=== PATIENT | male | born 1955 | race Caucasian/White ===

== ENCOUNTER 2016-11-03 13:20 | Observation (INO) | payer BC ==
[~2016-11-03] VITALS: Ht 182.9 cm; Wt 95.0 kg
[2016-11-03 14:46] LABS: HEMATOCRIT 40.5 % (38.0-50.0); MCH 30.8 PG (29.0-34.0); MCHC 36.3 G/DL (30.0-36.0); MCV 84.9 FL (86-99); PLATELET COUNT 130 K/uL (156-360); RBC DIS.WIDTH-CV 12.4 % (11.8-14.6); RBC DIS.WIDTH-SD 38.1 % (39-53); RED BLOOD COUNT 4.77 M/uL (4.00-5.50); WHITE BLOOD COUNT 6.1 K/uL (4.1-10.2)
[2016-11-03 14:55] LABS: CHLORIDE 109 mEq/L (99-109); POTASSIUM 3.6 mEq/L (3.7-5.4); SODIUM 141 mEq/L (136-147)
[2016-11-03 14:56] LABS: GLUCOSE 91 mg/dL (70-99)
[2016-11-03 14:58] LABS: ANION GAP 8 MEQ/L (2-14)
[2016-11-03 15:00] LABS: GFR ESTIMATE (CALCULATED) > 59 mL/min/
[2016-11-03 15:01] LABS: UREA NITROGEN (BUN) 16 mg/dL (9-23)
[2016-11-03 15:08] LABS: TROP-I INTERPRETATION NEGATIVE; TROPONIN-I < 0.01 ng/mL (0.0-0.30)
[2016-11-03] MEDS ORDERED: WELLBUTRIN SR150 MG PO (16:09)
[2016-11-03] MEDS ORDERED: PREVACID 24HR15 MG PO (16:09)
[2016-11-03] MEDS ORDERED: CIALIS5 MG PO (16:09)
[2016-11-03] MEDS ORDERED: ATORVASTATIN CA20 MG PO (16:09)
[2016-11-03] MEDS ORDERED: ONE-A-DAY ESSE1 EAC1 PO (16:09)
[2016-11-03] MEDS ORDERED: ASPIR 8181 M1 PO (16:09)
[2016-11-03] MEDS ORDERED: GLUCOSAMINE &1 EACH PO (16:10)
[2016-11-03] MEDS ORDERED: ADVIL,NUPRIN,M200 MG PO (16:10)
[2016-11-03] MEDS ORDERED: CALCIUM 500 MG1 EACH PO (16:10)
[2016-11-03] MEDS ORDERED: ASCORBIC ACID500 M3 PO (16:10)
[2016-11-03] MEDS ORDERED: EXCEDRIN EXTRA1 EACH PO (16:11)
[2016-11-03 19:11] LABS: HDL CHOLESTEROL 49 MG/DL (Desirable>=40); LDL CHOLESTEROL 73 mg/dL (Desirable<100); NON-HDL CHOLESTEROL 85 mg/dL (Desirable<160); TOTAL CHOLESTEROL 134 mg/dL (Desirable<200); TRIGLYCERIDES 59 MG/DL (Normal: <150)
[2016-11-03 19:23] LABS: Estimated Average Glucose 82 mg/dL (70-123); HEMOGLOBIN A1c (GLYCOHEMOGLOB) 4.5 % HGB (Below 5.7)
[2016-11-03 21:00] VITALS: BP 159/85
[2016-11-03 23:58] VITALS: BP 160/77
[2016-11-04 04:04] VITALS: BP 128/76
[2016-11-04 06:01] LABS: MCH 30.8 PG (29.0-34.0); MCHC 36.1 G/DL (30.0-36.0); MCV 85.4 FL (86-99); MEAN PLAT.VOLUME 10.4 uM^3 (9.0-12.4); PLATELET COUNT 141 K/uL (156-360); RBC DIS.WIDTH-CV 12.3 % (11.8-14.6); RBC DIS.WIDTH-SD 38.5 % (39-53); WHITE BLOOD COUNT 6.8 K/uL (4.1-10.2)
[2016-11-04 06:29] LABS: ANION GAP 8 MEQ/L (2-14); CHLORIDE 108 MEQ/L (99-109); GFR ESTIMATE (CALCULATED) > 59 mL/min/; GLUCOSE 84 mg/dL (70-99); SAMPLE HEMOLYSIS CHECK 0; SAMPLE ICTERIC CHECK 0; SAMPLE LIPEMIA CHECK 0; SODIUM 145 MEQ/L (136-147); UREA NITROGEN (BUN) 12 mg/dL (9-23)
[2016-11-04 07:40] VITALS: BP 147/70
[2016-11-04 11:37] VITALS: BP 155/79
[2016-11-04 13:30] LABS: LYME DISEASE SEROLOGY SCREEN NEGATIVE (NEGATIVE)
[2016-11-04 15:21] VITALS: BP 149/82
== END 2016-11-04 15:43 | disposition home or self-care (01) ==
LOC: EME 13:20 → ENRESERV 17:19 → EDOF 17:23 → 5SOUTH 17:23 → EDOF 17:23 → ENRESERV 17:42 → 5SOUTH 20:09
PROVIDERS: Emergency Medicine; Internal Medicine
DX: H50.00 Unspecified esotropia (principal); E87.5 Hyperkalemia; F17.200 Nicotine dependence, unspecified, uncomplicated; R26.89 Other abnormalities of gait and mobility; I10 Essential (primary) hypertension; E78.5 Hyperlipidemia, unspecified; F32.9 Major depressive disorder, single episode, unspecified; Z79.82 Long term (current) use of aspirin; Z82.49 Family history of ischemic heart disease and other diseases of the circulatory system; Z82.3 Family history of stroke
CPT/HCPCS: 70450; 70551; 71010; 80048; 80061; 82607; 82746; 83036; 84443; 84484; 85027; 85651; 86618; 93005; 99281; 99285; G0378; J1650